=== PATIENT | female | born 1985 | race Hispanic/Latino ===

== ENCOUNTER 2020-02-26 12:37 | Observation (INO) | payer OTHER, SELFPAY ==
--- NOTE | ~2020-02-26 | US_ITS ---
EXAMINATION: US OB limited w BPP DATE: 02/26/2020 15:04 INDICATION: Variable decelerations during third trimester TECHNIQUE: Real-time pelvic ultrasound was performed. The interpreting radiologist was not present fo r the study. COMPARISON: None. FINDINGS: There is a single living fetus in vertex presentation. The placenta is posterior. heart rate is 124 beats per minute (bpm). The amniotic fluid index is 11.2 cm which is normal Biophysical profile performed by the technologist: breathing (30 sec sustained breathing in 30 minutes): 2 out of 2 movement (3 gross body movements in 30 minutes): 2 out of 2 tone (one episode of twsqluw-sjrpzbqdx-jagzqky limb movement): 2 out of 2 Amniotic fluid pocket (2 cm): 2 out of 2 Total score: 8 out of 8 IMPRESSION: 1. Single living fetus in vertex presentation. 2. Biophysical profile 8 out of 8. Reviewed, dictated and finalized at location A.
[2020-02-26 14:35] VITALS: BP 99/67; PULSE 91
--- NOTE | 2020-03-01 08:21 | PM.OBTRLD ---
OB - Triage/Final Diagnosis Evaluation Comments: ROM + negative; VERONIKA normal Final Diagnosis (1) Vaginal discharge during : Qualifiers: Trimester: third trimester Qualified Code(s): O26.893 - Other specified related conditions, third trimester; N89.8 - Other specified noninflammatory disorders of vagina Code(s): O26.899 - Other specified related conditions, unspecified trimester; N89.8 - Other specified noninflammatory disorders of vagina Status: Acute
== END 2020-02-26 15:15 | disposition hospice, home (50) ==
PROVIDERS: Admitting Provider Obstetrics & Gynecology; Visit Provider Obstetrics & Gynecology
DX: O26.899 Other specified pregnancy related conditions, unspecified trimester (principal); N89.8 Other specified noninflammatory disorders of vagina; Z3A.00 Weeks of gestation of pregnancy not specified
CPT/HCPCS: 76815; 76819; 84112; G0378; G0379

== ENCOUNTER 2020-03-12 00:46 | Inpatient (IN) | payer OTHER, SELFPAY ==
[2020-03-12] VITALS (14 sets, daily range): BP systolic 82–125; BP diastolic 59–78; PULSE 79–118; RESP 18; TEMP 36.2–36.8; BMI 32.6
[2020-03-12] MEDS: fentaNYL CITRATE INJ (*CRX) 100 MCG/2 ML VIAL 50 MCG IV PUSH ×3 (01:36→02:34)
--- NOTE | 2020-03-12 01:44 | LDADM ---
This patient, Blossom Palacio, was admitted to Labor/Delivery/Recovery 105 on 03/12/20 at 00:46. Plans for labor, pain management and were discussed with patient. Patient/family oriented to hospital policies and general routines including ID bracelet, bed and alarms, visiting hours, pain management, procedures, bathroom and other care routines, personal items, smoking policy, room service/diet and guest tray routines, infant security routines, and visiting hours. Patient/Family are encouraged to report perceived risks to care and to ask questions if they do not understand what they are told or what they should do. See OBIX for further documentation.
[2020-03-12 01:46] LABS: Basophils Percent Auto 0.3 % (0.2-1.2); Eosinophils Absolute Auto 0.1 K/mm3 (0-0.3); Eosinophils Percent Auto 1.9 % (0-4.4); Hematocrit 36.2 % (37.0-47.0); Hemoglobin 11.8 g/dL (12.0-15.0); Immature Granulocyte Absolute 0.02 K/mm3 (0.00-0.031); Immature Granulocyte Percent A 0.3 % (0-0.5); Lymphocytes Percent Auto 23.3 % (18.3-44.2); Mean Corpuscular HGB Conc 32.6 g/dl (32-36); Mean Corpuscular Hemoglobin 30.3 pg (26-34); Mean Corpuscular Volume 93.1 fl (80-100); Mean Platelet Volume 11.3 fl (7.4-10.4); Monocytes Absolute Auto 0.6 K/mm3 (0.1-0.6); Monocytes Percent Auto 8.2 % (2.6-8.5); Neutrophils Absolute Auto 4.8 K/mm3 (1.3-6.7); Platelet Count Result 198 k/mm3 (150-375); Red Blood Count 3.89 M/mm3 (4.2-5.4); Red Cell Distribution Width 13.2 % (11.5-14.5); White Blood Count 7.3 K/mm3 (4.5-10.0)
[2020-03-12 02:04] LABS: Amphetamine Screen Urine Negative (Negative); Barbiturate Screen Urine Negative (Negative); Benzodiazepines Screen Urine Negative (Negative); Cannabinoid Screen Urine Negative (Negative); Cocaine Screen Urine Negative (Negative); Methadone Screen Urine Negative (Negative); Opiate Screen Urine Negative (Negative); Phencyclidine Screen Urine Negative (Negative)
--- NOTE | 2020-03-12 02:49 | PM.IMHP ---
H&P: HPI History of Present Illness Date/Time: 03/12/20 02:49 Chief complaint: Labor Narrative: Blossom Palacio is a 34 year old HF, , presents for MARS at 38w3d. Spontaneous onset of labor present 5 cm dilated gerard every 2-3 minutes Pmhx PCOS, recurrent miscarriage, advanced maternal age, premature labor. Review of Systems Review of Systems: All systems reviewed & are unremarkable except as noted in HPI and below Constitutional: Constitutional: Reports no additional constitutional complaints Eyes: Eyes: Reports no additional eye complaints ENT: Reports system reviewed and no additional complaints, except as documented Cardiovascular: Cardiovascular: Reports no additional cardiovascular complaints Respiratory: Respiratory: Reports no additional respiratory complaints Gastrointestinal: Gastrointestinal: Reports no additional gastrointestinal complaints Genitourinary: Genitourinary: Reports no additional female genitourinary complaints Musculoskeletal: Musculoskeletal: Reports no additional musculoskeletal complaints Integumentary/Breasts: Skin/Breast: Reports system reviewed and no additional complaints, except as docu Neurologic: Reports system reviewed and no additional complaints, except as documented Psychiatric: Psychiatric: Reports no additional psychiatric complaints Endocrine: Endocrine: Reports no additional endocrine complaints Hematologic/Lymphatic: Hematologic/Lymphatic: Reports no additional hematologic/lymphatic complaints Allergic/Immunologic: Allergic/Immunologic: Reports no additional allergic/immunologic complaints PMFSH Past Medical History Medical History (Updated 03/12/20 @ 02:56 by Pieter Iverson MD) Advanced maternal age (AMA) in PCOS (polycystic ovarian syndrome) Personal history of pre-term labor Recurrent loss Surgical History Surgical History History of appendectomy Family History Family History Father Skin cancer Mother Hypertension Social History Social History Smoking status: Never smoker Second hand tobacco smoke exposure: No Alcohol intake: never Substance use: never Substance use type: does not use Living arrangements: with family Occupation/Education: unemployed Gender identity (if verbalized by the patient): Female Sexual Orientation (if Verbalized by the Patient): Straight or Heterosexual Spiritual care concerns: No Agree to blood products: Yes Meds Home Medications and Allergies Home Medications Medication Instructions Recorded Confirmed Type PNV cmb#95-ferrous fumarate-FA 1 tablet PO DAILY 02/22/20 02/22/20 History [] Allergies Allergy/AdvReac Type Severity Reaction Status Date / Time No Known Allergies Allergy Verified 02/22/20 14:27 Vital Signs Vital Signs - 24 hr 03/12/20 01:05 03/12/20 01:31 03/12/20 02:00 Temperature 98.3 F Pulse Rate 91 88 Blood Pressure 104/73 106/67 Exam Const: General: cooperative, healthy appearing, comfortable, no acute distress, well developed, alert, awake and Physically active Nutritional Appearance: average body habitus Orientation/consciousness: oriented to person Limitations: no limitations HENMT: Head: normal to inspection Ears: hearing grossly normal bilaterally General nose exam: Normal external nose present Face and sinus: normal facial exam Mouth: Yes Normal oral and palatal mucosa present Teeth and gingiva: dentition normal Throat: posterior oropharynx normal Eyes: General: appearance normal, both eyes and all related structures Pupils: Equal, round and reactive pupils present Neck: Neck: normal visual inspection and full ROM Thyroid: thyroid normal Lymphatic: no lymphadenopathy noted Chest: Chest palpation & inspection: normal inspecti
--- NOTE | 2020-03-12 03:01 | WPDHPUPDATE1 ---
History and Physical Update Update Date/Time: 03/12/20 03:01 History and Physical has been reviewed, including an updated exam of the patient. There are NO changes in the patient's condition. Risks, benefits, and alternatives have been discussed and questions answered. Patient agrees to proceed with procedure. 34 y/o HF, , presents for MARS at 38w3d. spontaneous onset of labor Pmhx PCOS, recurrent miscarriage, advanced maternal age, premature labor.
--- NOTE | 2020-03-12 03:01 | WPDOBADMIT ---
Obstetrics - Admit Note Admission Note: record reviewed. No pertinent additions to the history and/or any subsequent changes in the physical findings that are not consistent with the expected course of the were found. Additions to the history and/or subsequent changes in the physical findings follow. None. 34 y/o HF, , presents for MARS at 38w3d. Pmhx PCOS, recurrent miscarriage, advanced maternal age, premature labor. spontaneous onset of labor
--- NOTE | 2020-03-12 03:02 | PM.OBPNLAB ---
Pain Control Date/time seen: 03/12/20 03:02 Pain control: tolerating well Pelvic Exam Dilation (cm): 8 Effacement (%): 100 station: 0 Amniotic membrane status: Ruptured ( clear amniotic fluid) Contractions Monitor mode: External Contraction frequency: 2 Contraction duration: 45 Contraction pattern: Regular Contraction phase: Contraction Contraction intensity: Strong/Firm Status status: Category l Assessment and Plan Assessment: active labor Plan: continuous present management Comments: anticipated vaginal delivery soon Desires natural childbirth Having a boyWendy Caal no circumcision desired
[2020-03-12] MEDS: OXYTOCIN 30 UNITS/NS 500 ML 30 UNITS/500 ML BAG 999 UNITS IV CONT (03:45)
[2020-03-12] MEDS: LACTATED RINGERS 1,000 ML 125 ML IV CONT (03:45)
--- NOTE | 2020-03-12 03:50 | P.PCNOB_ITS ---
OB - Delivery Note Procedure Delivery date: 03/12/20 Procedure: normal spontaneous vertex vaginal delivery a viable male infant and placenta Intrapartal events: None Induction method: none Delivery augmentation: rupture of membranes Delivery monitor: external FHT and external uterine Route of delivery: Episiotomy description: None Laceration Description: None Specimen: Yes ( placenta, cord blood gases, cord blood) Estimated blood loss (mL): 200 Anesthesia type: None Disposition: floor Complications: none Narrative: normal spontaneous vertex vaginal delivery a viable male over an intact perineum nuchal cord x1 and nuchal cord reduced at delivery cord around leg reduced at delivery delivered and placed on the maternal abdomen cord clamped and cut infant handed to the nursery nurse in attendance scores 8 and 9 weight 7 lb 5 oz 20 inches long taken to the nursery in stable condition time of delivery 3:42 a.m. Placenta delivered intact three-vessel cord the uterus contracted well with Pitocin given intravenously mom and baby in delivery room 105 stable condition [place] Baby Date of : 03/12/20 Time of : 03:42 Weeks of gestation at delivery: 38 gender: Male Weight (pounds): 7 Weight (ounces): 5 presentation: vertex position: Left Occiput Anterior Placenta delivery description: Spontaneous and Normal Configuration cord vessel description: 3 Vessels, Nuchal Cord and Around Extremity x1 score one minute: 8 score five minutes: 9
[2020-03-12] MEDS: OXYTOCIN 30 UNITS/NS 500 ML 30 UNITS/500 ML BAG 125 UNITS IV CONT (04:18)
[2020-03-12] MEDS: BENZOCAINE 20% AER SPR (*SP) 56 GM CAN 1 SPRAY TOPICAL (05:44)
[2020-03-12] MEDS: WITCH HAZEL 40 PADS 1 PAD TOPICAL (05:44)
[2020-03-12] MEDS: IBUPROFEN 600 MG TABLET PO ×2 (08:26→15:56)
[2020-03-12] MEDS: DOCUSATE SODIUM 100 MG CAPSULE PO ×2 (08:26→15:56)
[2020-03-12] MEDS: MULTIVIT/MIN/PREN/FOL AC/IRON TABLET 1 TAB PO (08:26)
--- NOTE | 2020-03-12 09:13 | PC.NURSE ---
Addendum entered by Eileen Ruvalcaba RN 03/12/20 09:14: Pt. transferred to room at 0636. Original Note: Patient transferred to post room #280 per wheelchair. Support person present. Oriented to unit, room, information board, rooming in, admission packet and security measures. Patient verbalizes understanding.
[2020-03-13] MEDS: IBUPROFEN 600 MG TABLET PO ×3 (01:22→12:47)
[2020-03-13] MEDS: HYDROcodone/acetaminophen (*CRX) 5-325 MG TABLET 1 TAB PO ×3 (01:29→12:47)
--- NOTE | 2020-03-13 01:58 | PC.NURSE ---
Daylight Savings Time For Daylight Savings Time Ending in the Fall - Clocks are moved back. For Daylight Savings Time Beginning in the Spring - Clocks are moved ahead. For [facility], the time of change occurs at 0200 hrs. Time is taken from the water server. This entry on the patient's chart recognizes the change in time reflected during documentation. Example: 2 entries for vital signs may be charted for 0200 hrs.
[2020-03-13 05:44] LABS: Hematocrit 29.8 % (37.0-47.0); Hemoglobin 9.7 g/dL (12.0-15.0)
[2020-03-13] MEDS: BENZOCAINE 20% AER SPR (*SP) 56 GM CAN 1 SPRAY TOPICAL (07:37)
[2020-03-13] MEDS: MULTIVIT/MIN/PREN/FOL AC/IRON TABLET 1 TAB PO (07:37)
[2020-03-13] MEDS: WITCH HAZEL 40 PADS 1 PAD TOPICAL (07:37)
[2020-03-13] MEDS: DOCUSATE SODIUM 100 MG CAPSULE PO (07:38)
[2020-03-13 07:42] VITALS: BP 95/60; PULSE 81; RESP 18; TEMP 36.2
--- NOTE | 2020-03-13 08:50 | P.PNOB_ITS ---
OB - PN: Subj Subjective Date/time seen: 03/13/20 08:50 Interval history: ppd #1 male Patient comments: no complaints, pain well controlled, tolerating diet and flatus present [place] baby status: doing well feeding status: exclusively breast feeding OB - PN: Obj Data Labs CBC & Chem 7: 03/13/20 04:59 Labs: Laboratory Results - last 24 hr 03/13/20 04:59 Hgb 9.7 L Hct 29.8 L OB - PN A/P Assessment and Plan (1) Term delivered: Code(s): O80 - Encounter for full-term uncomplicated delivery Status: Acute Assessment and Plan: discharge to home rto 3 weeks (2) Advanced maternal age (AMA) in : Status: Acute Time Spent With Patient Time: Total time spent is greater than 50% in coordination of care (as documented) at patient's floor/unit and/or counseling patient: Review of Systems Review of Systems: All systems reviewed & are unremarkable except as noted in HPI and below Exam Const: General: cooperative, healthy appearing, comfortable, no acute distress, well developed, alert, awake and Physically active HENMT: Head: normal to inspection Ears: hearing grossly normal bilaterally General nose exam: Normal external nose present Face and sinus: normal facial exam Mouth: Yes Normal oral and palatal mucosa present Throat: posterior oropharynx normal Eyes: General: appearance normal, both eyes and all related structures Neck: Neck: normal visual inspection and full ROM Chest: Chest palpation & inspection: normal inspection of the chest Breast/axilla inspection: normal inspection of the breasts Resp: Effort & Inspection: normal respiratory effort Auscultation: clear to auscultation bilaterally Cardio: Rate: regular rate Rhythm: regular rhythm GI: Inspection: normal to inspection GI Palp: Yes Soft to palpation Percussion: Yes normal to percussion Auscultation: normal bowel sounds : External Female Exam: normal external appearance Back/Spine/Pelvis: Back: no CVA tenderness Skin: General skin exam: normal color and no rashes or lesions noted Neuro: General: patient oriented x3, gait normal, tone normal, moves all extremities, Normal light touch and pain sensation, no meningeal signs, no focal motor deficits and CN's II-XI intact bilaterally Extrem: General: normal to inspection and full ROM Psych: Appearance: grossly normal Mental Status: mental status grossly normal Speech and movement: Normal speech and movement present Affect: normal affect Attitude: cooperative Thought process: Normal thought process present Thought content: Yes Normal thought content present Insight: Good insight present (Psych) Judgement: Good judgement present (Psych)
--- NOTE | 2020-03-13 10:09 | PC.NURSE ---
Patient viewed the discharge video Mother & Baby Care, The First Two Weeks . Patient was given the opportunity and encouraged to ask questions. Patient verbalized understanding of information shared and has been given the mother/baby guide for home reference.
--- NOTE | 2020-03-13 10:09 | PC.NURSE ---
Self care and infant care discharge instructions given including follow up visit date and time. Pt. verbalized understanding. No questions or concerns verbalized. Very pleasant and cooperative.
[2020-03-14 09:56] LABS: Rapid Plasma Reagin Non-Reactive (NonReactive)
[2020-03-15 10:53] VITALS: BP 105/69; PULSE 86; RESP 20; TEMP 36.9; O2SAT 99
--- NOTE | 2020-03-15 19:33 | PM.OBDSVD ---
DS: Admitting Diagnosis Admitting Diagnosis Admitting Diagnosis: spontaneous onset of Labor Term Advanced maternal age Recurrent losses DS: Discharge Diagnosis Discharge Diagnosis (1) Term delivered: Code(s): O80 - Encounter for full-term uncomplicated delivery Status: Acute (2) Nuchal cord: Status: Acute (3) Recurrent loss: Code(s): N96 - Recurrent loss Status: Acute (4) Advanced maternal age (AMA) in : Status: Acute (5) PCOS (polycystic ovarian syndrome): Code(s): E28.2 - Polycystic ovarian syndrome Status: Acute OB - DS: Summary Hospital Course Time spent discussing smoking cessation with patient: 3 to 10 minutes OB Procedures : Ultrasound OB Procedures Intrapartum: Spontaneous Vag Delivery OB Procedures: : None Peripartum Data Infant Delivery Method: Natural Vaginal Laceration description: None Episiotomy description: None complications: none 1: Gender: Male Disposition of : home Status at Discharge Functional status at discharge: independent ambulation Overall status at discharge: patient is back to baseline Time Spent with Patient Time attestation: Total time spent providing and/or coordinating discharge services: Time spent: Less than 30 minutes Exam Const: General: cooperative, healthy appearing, comfortable, no acute distress, well developed, alert and awake Nutritional Appearance: average body habitus Orientation/consciousness: patient oriented x3 Limitations: no limitations HENMT: Head: normal to inspection Eyes: General: appearance normal, both eyes and all related structures Neck: Neck: normal visual inspection and full ROM Chest: Chest palpation & inspection: normal inspection of the chest Breast/axilla inspection: normal inspection of the breasts Breast/axilla palpation: normal palpation of the breasts Resp: Effort & Inspection: normal respiratory effort Auscultation: clear to auscultation bilaterally Cardio: Palpation: normal PMI Rate: regular rate Rhythm: regular rhythm GI: Inspection: normal to inspection GI Palp: Yes Soft to palpation Percussion: Yes normal to percussion Auscultation: normal bowel sounds : External Female Exam: normal external appearance Back/Spine/Pelvis: Back: no CVA tenderness Skin: General skin exam: normal color Neuro: General: patient oriented x3, gait normal, tone normal, moves all extremities, Normal light touch and pain sensation, no focal motor deficits and CN's II-XI intact bilaterally Extrem: General: normal to inspection, full ROM and capillary refill normal Psych: Appearance: grossly normal Mental Status: mental status grossly normal Speech and movement: Normal speech and movement present Affect: normal affect Attitude: cooperative Thought process: Normal thought process present Thought content: Yes Normal thought content present Insight: Good insight present (Psych) Judgement: Good judgement present (Psych) DS: Data Data Completed and Pending Labs on day of discharge: Labs from last 24 hours 03/12/20 03/12/20 03/12/20 01:31 01:31 01:31 WBC RBC Hgb Hct MCV MCH MCHC RDW Plt Count MPV Immature Gran % (Auto) Neut % (Auto) Lymph % (Auto) Wake % (Auto) Eos % (Auto) Baso % (Auto) Lymph # (Auto) Wake # (Auto) Eos # (Auto) Baso # (Auto) Abs Immat Gran (auto) Absolute Neuts (auto) Absolute Nucleated RBC Nucleated RBC % Urine Opiates Screen Negative Urine Methadone Screen Negative Ur Barbiturates Screen Negative Ur Phencyclidine Scrn Negative Ur Amphetamine Screen Negative U Benzodiazepines Scrn Negative Urine Cocaine Screen Negative U Cannabinoids Screen Negative RPR Pending Blood Type O Positive Antibody Screen Negative 03/12/20 01:31 WBC
== END 2020-03-13 13:30 | disposition home or self-care (01) | DRG 807 ==
LOC: ANHLDR 04:01 → ANHOB2 06:46
PROVIDERS: Admitting Provider Obstetrics & Gynecology; Visit Provider Obstetrics & Gynecology
DX: O99.284 Endocrine, nutritional and metabolic diseases complicating childbirth (principal); Z37.0 Single live birth; Z3A.38 38 weeks gestation of pregnancy; E28.2 Polycystic ovarian syndrome; Z87.51 Personal history of pre-term labor; O69.82X0 Labor and delivery complicated by other cord entanglement, without compression, not applicable or unspecified; O36.8330 Maternal care for abnormalities of the fetal heart rate or rhythm, third trimester, not applicable or unspecified
CPT/HCPCS: 36415; 80307; 85014; 85018; 85025; 86592; 86850; 86900; 86901; 88307; A9270; J2590; J3010; J7120

== ENCOUNTER 2022-06-28 00:28 | Day surgery (SDC) | payer OTHER, SELFPAY ==
[2022-06-15 10:13] VITALS: BMI 25.7
--- NOTE | 2022-06-15 10:18 | PC.NURSE ---
Report to the Outpatient Waiting Room, entrance under the green pavilion located off [facility], at time 8:45 on date 06/28/22. Planned Procedure Time: 10:45. Time changes happen often and if your time is changed the preop area will call you the afternoon before. - You and your visitor will be asked to self-screen and do not enter if you have any COVID symptoms. - Only one visitor is requested with a max of two and NO children visitors are allowed at this time. - The patient visitor may be requested to leave or wait in car when not with patient due to distancing restrictions. - A mask is optional within the hospital at this time. Patients may have clear liquids (water, carbonated beverages, clear teas, apple juice) until 3 hours prior to surgery (7:45) with a maximum of 20 ounces. - No food from midnight until time of surgery Take the following medications with a SIP of water the morning of surgery: NONE DO NOT STOP ANY OF YOUR OTHER PRESCRIPTION MEDICATIONS PRIOR TO SURGERY?EXCEPT THE FOLLOWING Medications to discontinue per physician: VITAMINS/SUPPLEMENTS Date to take last dose: 06/24/22 Please no make-up, nail egyptian, hairspray, perfume, deodorant, or body powder the day of surgery. No jewelry (including any body piercings) or valuables the day of surgery, leave them at home. Please take a shower or bath the night before, or the morning of, surgery with an antibacterial soap. Wear comfortable, loose fitting clothing. - Jewelry must be removed prior to entering the operating room. Rings and piercings that are not removed may be cut off. - The hospital will not accept responsibility for valuables. - Please leave all valuables, including medications, at home the day of surgery. If you are going home after surgery, a licensed oil truck driver must drive you home. - NO public transportation without another adult if you receive anesthesia. - We recommend that an adult stay with you for 24 hours following discharge. - We also recommend that you do not drive, make important decision, drink alcoholic beverages, or take any drugs that were not prescribed by your health care provider for at least 24 hours after your discharge time. Follow any additional instructions given to you from your surgeon. If you or anyone in your household have experienced Covid symptoms in the past week, please notify your surgeon or the nurse liaison at the phone number below for possible testing. Telephone instructions given to PT - SANTA and asked if any additional questions and then verbalized understanding. Patient advised to call surgeon office or pre surgery nurse liaison [phone] if any additional questions.
--- NOTE | 2022-06-27 14:29 | WPDANESEPPF ---
Anes - Initial Pre Proc Eval Procedure: Operation Date: 06/28/22 10:45 Proposed Procedures p Laparoscopic Bilateral Salpingectomy - Luis Scherer MD Date/Time: 06/27/22 14:29 Surgeon: Luis Scherer MD Pre Op Diagnosis: sterilization Patient Data Age: 37 Gender: F Height: 1.55 m Weight: 61.7 kg Allergies Allergy/AdvReac Type Severity Reaction Status Date / Time No Known Allergies Allergy Verified 06/28/22 09:08 Home Medications Medication Instructions Recorded Confirmed Type cholecalciferol (vitamin D3) 50 100 mcg PO DAILY 06/12/22 06/28/22 History mcg (2,000 unit) capsule omega-3 fatty acids 500 mg capsule 500 mg PO DAILY 06/12/22 06/28/22 History vitamin E 670 mg (1,000 unit) 670 mg PO DAILY 06/15/22 06/28/22 History capsule Patient hx anesthesia problems: none Family hx anesthesia problems: none Results Review: All pre-operative results and documents have been reviewed as part of the pre-operative evaluation. [facility]LY [facility] Past Medical History Medical History Advanced maternal age (AMA) in PCOS (polycystic ovarian syndrome) Personal history of pre-term labor Recurrent loss Surgical History Surgical History History of appendectomy Family History Family History (Updated 06/12/22 @ 14:38 by CRISTO Dorado) Father Skin cancer Mother Hypertension Diabetes mellitus Thyroid disease Social History Social History (Updated 06/12/22 @ 14:39 by CRISTO Dorado) Smoking status: Never smoker Second hand tobacco smoke exposure: No Alcohol intake: never Substance use: never Substance use type: does not use Living arrangements: with family Additional living arrangements comments: Occupation/Education: occupation 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 Gender identity (if verbalized by the patient): Female Sexual Orientation (if Verbalized by the Patient): Straight or Heterosexual Spiritual care concerns: No Agree to blood products: Yes Anes - Eval Final PreProcedure Day of Procedure 06/27/22 14:29 Patient weight: normal Heart: regular rate and rhythm Lungs: clear to auscultation and normal air movement Airway: Mallampati scale class II Neurological: alert and oriented Last oral intake: >/= 8 hours ASA classification: II Emergent: no Anesthetic plan: proceed Anesthesia type and monitoring: general ETT Results Review: All pre-operative results and documents have been reviewed as part of the pre-operative evaluation. Informed Consent: The patient's anesthetic plan and its attendant risks and benefits were discussed with the patient/family/POA. Questions were solicited and answers provided to the satisfaction of the patient/family/POA.
[2022-06-28] VITALS (7 sets, daily range): BP systolic 97–108; BP diastolic 46–68; PULSE 48–84; RESP 12–18; TEMP 36.2–36.3; O2SAT 100
--- NOTE | 2022-06-28 07:14 | WPDHPUPDATE1 ---
History and Physical Update Update Date/Time: 06/28/22 07:14 History and Physical has been reviewed, including an updated exam of the patient. There are NO changes in the patient's condition. Risks, benefits, and alternatives have been discussed and questions answered. Patient agrees to proceed with procedure.
[2022-06-28] MEDS: LACTATED RINGERS 1,000 ML 30 ML IV CONT (09:29)
[2022-06-28] MEDS: ACETAMINOPHEN 500 MG TABLET 1000 MG PO (09:30)
[2022-06-28] MEDS: KETOROLAC 15 MG/ML VIAL (*BKC) IV PUSH (09:30)
[2022-06-28 09:36] LABS: Hematocrit 38.4 % (37.0-47.0); Hemoglobin 12.4 g/dL (12.0-15.0); Mean Corpuscular HGB Conc 32.3 g/dl (32-36); Mean Corpuscular Hemoglobin 30.9 pg (26-34); Mean Corpuscular Volume 95.8 fl (80-100); Mean Platelet Volume 10.1 fl (7.4-10.4); Platelet Count Result 197 k/mm3 (150-375); Red Blood Count 4.01 M/mm3 (4.2-5.4); Red Cell Distribution Width 13.2 % (11.5-14.5); White Blood Count 5.1 K/mm3 (4.5-10.0)
--- NOTE | 2022-06-28 11:29 | W.PM.PROC2 ---
Procedure Note - Detailed Date of Procedure 06/28/22 Pre-op Diagnosis Undesired fertility Post-op Diagnosis Same Procedure Performed 1. Laparoscopic bilateral salpingectomy Surgeon Luis Scherer MD Anesthesia General Findings Uterus tubes ovaries without significant abnormality noted. Description of Procedure Patient prepped draped usual manner for this procedure. Cervical instruments placed for mobility throughout the case. Abdominal trocar sites were all placed under direct visualization and using the Harmonic scalpel bilaterally the mesial salpinx were cauterized and cut and tubes removed without difficulty. Gas allowed to escape and there was no bleeding. Incisions approximated using 4-0 Monocryl the patient was sent to recovery room stable condition. Estimated Blood Loss 10 Drains No Packing No Pathology Yes Complications No immediate complications Condition Stable Disposition PACU [facility] Billing Surgery - Charge Forward: Surgery Billing
[2022-06-28] MEDS: fentaNYL CITRATE INJ (*CRX) 100 MCG/2 ML VIAL 25 MCG IV PUSH (12:21)
== END 2022-06-28 13:19 | disposition home or self-care (01) ==
PROVIDERS: PCP Internal Medicine; Visit Provider Obstetrics & Gynecology
PROC: (CPT 49320; principal; 2022-06-28 10:45)
DX: Z30.2 Encounter for sterilization (principal); E28.2 Polycystic ovarian syndrome
CPT/HCPCS: 58661; 36415; 85027; 88302; A9270; J0330; J1100; J1885; J2250; J2310; J2405; J2704; J3010; J7120